=== PATIENT | female | born 1970 | race Caucasian/White ===

== ENCOUNTER 2018-02-22 09:23 | Inpatient (IN) ==
[2018-02-22] MEDS ORDERED: METHYLPREDNISOLONE SOD SUCC 125mg/2ml INJECTION IVP ONE (09:38)
[2018-02-22] MEDS ORDERED: DiphenhydrAMINE 50 MG/ML INJECTION IVP ONE (09:39)
--- NOTE | 2018-02-22 09:40 | Emergency Department Report ---
General Adult HPI - General Chief complaint: Skin/Abscess/Foreign Body Stated complaint: rash all over, medication reaction Time Seen by Provider: 02/22/18 09:33 Source: patient, family Mode of arrival: ambulatory Limitations: no limitations - History of Present Illness HPI narrative: 47-year-old female presents to the emergency department with a chief complaint of a fine rash generalized from head to toe which is itchy. Patient states that she was started on Bactrim DS yesterday in the emergency department for treatment of an abscess in her groin. The abscess was not yet ready to be drained. Patient has had 2 doses of the Bactrim DS since yesterday. She noted onset of symptoms while at home prior to arrival to the emergency department. No other complaints or associated symptoms other than feeling generally achy. Symptoms have been persistent in nature since onset. Patient has a history of prior symptoms in the past with the use of amoxicillin. - Related Data Home Medications Medication Instructions Recorded Confirmed Albuterol HFA Inhaler [Ventolin 2 puff ORAL INH Q4HR PRN 02/21/18 02/22/18 Hfa 90 mcg/actuation] Cetirizine HCl [Zyrtec] 10 mg PO HS 02/21/18 02/22/18 Fluticasone Nasal [place] [Flonase] 2 spray EA NOSTRIL DAILY 02/21/18 02/22/18 Tramadol [Ultram] 50 mg PO Q6HR PRN 02/21/18 02/22/18 Acetaminophen [Acetaminophen Extra 1,000 mg PO Q6H PRN 02/22/18 02/22/18 Strength] Ibuprofen 400 mg PO Q4H PRN 02/22/18 02/22/18 Allergies Allergy/AdvReac Type Severity Reaction Status Date / Time sulfamethoxazole Allergy Intermediate Rash Verified 02/22/18 09:52 [From Bactrim] trimethoprim [From Bactrim] Allergy Intermediate Rash Verified 02/22/18 09:52 ALL CILLINS Allergy Intermediate HIVES Uncoded 02/22/18 09:34 Review of Systems Constitutional: Denies: fever, chills Eyes: Denies: eye pain, vision change ENT: Denies: ear pain, throat pain Cardiovascular: Denies: chest pain, palpitations Respiratory: Denies: cough, dyspnea Gastrointestinal: Denies: abdominal pain, nausea, vomiting, diarrhea Genitourinary: Denies: urgency, dysuria Musculoskeletal: Denies: back pain, arthralgia Integumentary: Reports: rash. Denies: swelling Neurological: Denies: headache, numbness Psychiatric: Denies: anxiety, depression Endocrine: Denies: polydipsia, polyuria Hematological/Lymphatic: Denies: easy bruising, lymphadenopathy Allergic/Immunologic: Denies: facial swelling, itchy eyes PFSH Patient Stated Medical History Asthma Yes Other Respiratory Yes: SEASONAL ALLERGIES Other Reproductive Yes: HPV Surgical History: Appendectomy Family History: Reviewed and Noncontributory. - Social History Smoking status: Current every day smoker Substance use type: does not use Alcohol intake frequency: does not drink Physical Exam - Limitations Limitations: no limitations - General General appearance: alert, in no apparent distress - Normal Exams: Head:: Normocephalic without trauma Eyes:: Pupils are PERRLA w/ EOMI, No scleral icterus, irritation, or foreign bodies noted ENMT:: No facial trauma, nasal exudates, pharyngeal erythema (no intraoral involvement or lesions.), or exudates are noted Dental: No fractured, loose, or missing teeth noted Neck:: Full range of motion, without adenopathy, JVD, bruits or thyromegaly Chest/Respirations:: Clear all cote, with good airflow, and symmetry bilaterally Cardiovascular:: Regular rate and rhythm, without murmur or gallop, Pulses 2+ all extremities, capillary refill, <2 seconds all extremities Abdomen:: Bowel sounds positive, soft, non-tender, non-distended, no hepatosplenomegaly, masses or bruits noted Genitourinary:: Vulva without rashes, or lesions, no exudate or bleeding, noted externally (no noted internal lesions of vaginal mucosa on visual inspection.) Lymphatic:: No lymphadenopathy, or lymphedema noted Musculoskeletal:: No tenderness, or deformity noted, good range of motion, all extremities Integumentary:: No rashes (patient has a generalized morbilliform drug rash which blanches with pressure and shows no sign of secondary infection. ), hives , or bruising noted (R Groin - Patient does have small palpable abscess which is draining without extending cellulitis or lymphangitis. ), hair and nails (R Hand - 2 small discrete areas of maculopapular lesion which contained a serosanguineous fluid. They do not avulse with pressure.), without abnormality Neurological:: Patient is alert, and oriented, cranial nerves, motor/sensory/ cerebellar, exams w/o gross deficits, to observation Psychiatric:: Patient exhibits, appropriate attention, emotion and affect Course Vital Signs Temperature 99.0 F 02/22/18 09:25 Pulse Rate 122 H 02/22/18 09:25 Respiratory Rate 20 02/22/18 09:25 Blood Pressure 112/66 02/22/18 09:25 Pulse Oximetry 100 02/22/18 09:25 Temperature 99.8 F 02/22/18 14:59 Pulse Rate 79 02/22/18 15:08 Respiratory Rate 14 02/22/18 15:08 Blood Pressure 117/65 02/22/18 14:59 Pulse Oximetry 97 02/22/18 15:08 Medical Decision Making - [facility] Narrative Medical decision making narrative: Labs were discussed in detail with the patient / family and questions are answered. Patient is given 1 L normal saline intravenously. She is given Solu- Medrol 125 mg IV 1, Pepcid 20 mg IV times one, and Benadryl 50 mg IV 1 with improvement of symptoms. The Bactrim is discontinued. Sepsis is considered in the emergency department at 1200 and patient refuses further antibiotic therapy at this time. She declines any further antibiotic medications at this time. She is aware of the risk of declining antibiotic therapy in the emergency department. Patient is discussed with Dr. Ledesma from the hospitalist service who will admit the patient to his service in improved condition. Patient will undergo further evaluation and treatment in the hospital. Patient and family are in agreement with the current plan of management and are in agreement with refusal of further antibiotic coverage which was recommended by myself. She is admitted to the hospital in improved condition. Lactate and blood cultures will be followed by Dr. Ledesma and treated appropriately. Sepsis is considered in the emergency department at 1200 and patient refuses antibiotic therapy at this time. She is aware of the risk of declining antibiotic therapy in the emergency department. - Differential Diagnosis drug reaction, drug rash, ALLERGIC reaction, abscess - Lab Data Result diagrams: 02/22/18 09:55 02/22/18 09:55 Lab Results 02/22/18 02/22/18 02/22/18 Range/Units 09:55 09:55 11:40 WBC 12.4 H (4.5-11.0) T/MM3 RBC 5.03 (4.00-5.20) M/MM3 Hgb 14.2 (12-16) GM/DL Hct 41.8 (36-46) % MCV 83.1 (80-100) UM3 MCH 28.2 (26-34) UUG MCHC 34.0 (31-37) GM/DL RDW Std Deviation 41.0 (36.9-50.2) FL Plt Count 23 L* (130-400) T/MM3 MPV Not performed Immature Gran % (Auto) [employer]ogenics Repairer Neut % (Auto) Cryogenics Repairer Lymph % (Auto) Cryogenics Repairer [place] % (Auto) Cryogenics Repairer Eos % (Auto) Cryogenics Repairer Baso % (Auto) Cryogenics Repairer Neut # (Auto) Cryogenics Repairer Lymph # (Auto) Cryogenics Repairer [place] # (Auto) Cryogenics Repairer Eos # (Auto) Cryogenics Repairer Baso # (Auto) Cryogenics Repairer Abs Immat Gran (auto) Cryogenics Repairer Neutrophils % (Manual) 70.0 H (33-66) % Band Neutrophils % 22.0 H (0-6) % Lymphocytes % (Manual) 4.0 L (23-45) % Monocytes % (Manual) 4.0 (0-9.0) % Neutrophils # (Manual) 8.7 H (1.8-7.7) T/MM3 Band Neutrophils # 2.7 T/MM3 Lymphocytes # (Manual) 0.5 L (1-4.8) T/MM3 Monocytes # (Manual) 0.5 (0-0.8) T/MM3 RBC Morph Comment Normal Turbidity < 20 (0-20) Sodium 136 (134-144) MEQ/L Potassium 3.4 L (3.6-5) MEQ/L Chloride 103 (98-107) MEQ/L Carbon Dioxide 22 (22-30) MEQ/L Anion Gap 11 (5-15) meq/L BUN 10.0 (7-17) MG/DL Creatinine 0.9 (0.7-1.2) mg/dL GFR Calculation 67 BUN/Creatinine Ratio 11 (6-26) RATIO Glucose 144 H (65-110) MG/DL Calculated Osmolality 264 (261-280) MOSM/KG Calcium 8.6 (8.4-10.2) MG/DL Icterus Index < 2 (0-7) Plasma Lactate (0.6-2.2) MMOL/L Specimen Hemolysis < 15 (0-25) Ur Collection Type Urine, void-cc/notcc Urine Color Yellow (YELLOW) Urine Clarity Clear Urine pH 6.0 (5.0-8.0) Ur Specific [place] <=1.005 L (1.015-1.025) Urine Protein Negative (NEGATIVE) Urine Glucose (UA) Negative (NEGATIVE) Urine Ketones Negative (NEGATIVE) Urine Occult Blood 2+ A (NEGATIVE) Urine Nitrate Negative (NEGATIVE) Urine Bilirubin Negative (NEGATIVE) Urine Urobilinogen 0.2 (NORMAL) EU/DL Ur Leukocyte Esterase Negative (NEGATIVE) Urine RBC 0-1 (0-3) /HPF Urine WBC 0-1 (0-5) /HPF Ur Squamous Epith Cells 0-5 Urine Bacteria None seen (NEGATIVE) Ur Culture Indicated? Cult not indicated Urine Test (Negative) 02/22/18 02/22/18 Range/Units 11:40 11:50 WBC (4.5-11.0) T/MM3 RBC (4.00-5.20) M/MM3 Hgb (12-16) GM/DL Hct (36-46) % MCV (80-100) UM3 MCH (26-34) UUG MCHC (31-37) GM/DL RDW Std Deviation (36.9-50.2) FL Plt Count (130-400) T/MM3 MPV Immature Gran % (Auto) Neut % (Auto) Lymph % (Auto) [place] % (Auto) Eos % (Auto) Baso % (Auto) Neut # (Auto) Lymph # (Auto) [place] # (Auto) Eos # (Auto) Baso # (Auto) Abs Immat Gran (auto) Neutrophils % (Manual) (33-66) % Band Neutrophils % (0-6) % Lymphocytes % (Manual) (23-45) % Monocytes % (Manual) (0-9.0) % Neutrophils # (Manual) (1.8-7.7) T/MM3 Band Neutrophils # T/MM3 Lymphocytes # (Manual) (1-4.8) T/MM3 Monocytes # (Manual) (0-0.8) T/MM3 RBC Morph Comment Turbidity (0-20) Sodium (134-144) MEQ/L Potassium (3.6-5) MEQ/L Chloride (98-107) MEQ/L Carbon Dioxide (22-30) MEQ/L Anion Gap (5-15) meq/L BUN (7-17) MG/DL Creatinine (0.7-1.2) mg/dL GFR Calculation BUN/Creatinine Ratio (6-26) RATIO Glucose (65-110) MG/DL Calculated Osmolality (261-280) MOSM/KG Calcium (8.4-10.2) MG/DL Icterus Index (0-7) Plasma Lactate 1.4 (0.6-2.2) MMOL/L Specimen Hemolysis (0-25) Ur Collection Type Urine Color (YELLOW) Urine Clarity Urine pH (5.0-8.0) Ur Specific [place] (1.015-1.025) Urine Protein (NEGATIVE) Urine Glucose (UA) (NEGATIVE) Urine Ketones (NEGATIVE) Urine Occult Blood (NEGATIVE) Urine Nitrate (NEGATIVE) Urine Bilirubin (NEGATIVE) Urine Urobilinogen (NORMAL) EU/DL Ur Leukocyte Esterase (NEGATIVE) Urine RBC (0-3) /HPF Urine WBC (0-5) /HPF Ur Squamous Epith Cells Urine Bacteria (NEGATIVE) Ur Culture Indicated? Urine Test Negative (Negative) Disposition Clinical Impression: Drug reaction Qualifiers: Encounter type: initial encounter Qualified Code(s): T88.7XXA - Unspecified adverse effect of drug or medicament, initial encounter Disposition: 02 To [facility] Condition: Improved Time of Disposition: 12:00 (Admit. Dr. Ledesma. ) - Seen By: physician
[2018-02-22] MEDS: SALINE FLUSH 10ml SYRINGE IVF PRN (09:57)
[2018-02-22] MEDS: FAMOTIDINE PB 20 MG/50 ML BAG IV SCH (10:06)
[2018-02-22] MEDS ORDERED: NS 1,000 ML IV ONE (10:29)
[2018-02-22 13:21] VITALS: BMI 37.0
--- NOTE | 2018-02-22 18:58 | History & Physical Report ---
History of Present Illness Date: 02/22/18 HPI: Pt comes in with rash all over her body, on her face, arms, legs abdomen and back. Rash started overnight and is itchy. Denies any f/c, n/v/d, cp or sob. Reports some swelling of both hands. Pt came into the ED yesterday for an abscess in the groin and was prescribed Bactrim, of which she had a couple of doses yesterday. Pt reports she had an allergic rxn to penicillin before but it wasn't this extensive. Denies any skin sloughing but pt does have some pustules on the outside of her pinky finger on her right hand. Review of Systems Review of systems: 10 point ros negative other than what is noted in HPI Past Medical History Surgical History: Appendectomy Family History: No Significant Family History - Social History Smoking status: Current every day smoker Medications Home Medications Medication Instructions Recorded Confirmed Type Albuterol HFA Inhaler [Ventolin 2 puff ORAL INH Q4HR PRN 02/21/18 02/22/18 History Hfa 90 mcg/actuation] Cetirizine HCl [Zyrtec] 10 mg PO HS 02/21/18 02/22/18 History Fluticasone Nasal [place] [Flonase] 2 spray EA NOSTRIL DAILY 02/21/18 02/22/18 History Tramadol [Ultram] 50 mg PO Q6HR PRN 02/21/18 02/22/18 History Acetaminophen [Acetaminophen Extra 1,000 mg PO Q6H PRN 02/22/18 02/22/18 History Strength] Ibuprofen 400 mg PO Q4H PRN 02/22/18 02/22/18 History Allergies Allergy/AdvReac Type Severity Reaction Status Date / Time sulfamethoxazole Allergy Intermediate Rash Verified 02/22/18 09:52 [From Bactrim] trimethoprim [From Bactrim] Allergy Intermediate Rash Verified 02/22/18 09:52 ALL CILLINS Allergy Intermediate HIVES Uncoded 02/22/18 09:34 Exam Vital Signs: Temperature 99.8 F 02/22/18 14:59 Pulse Rate 79 02/22/18 15:08 Respiratory Rate 14 02/22/18 15:08 Blood Pressure 117/65 02/22/18 14:59 Pulse Oximetry 97 02/22/18 15:08 Height/Weight/BMI: Height 5 ft 5 in Weight 100.9 kg Body Mass Index 37.0 - Constitutional Present: no acute distress - Routine HEENT Exam Head: Present: normocephalic, atraumatic ENT: Present: mucous membranes moist - Routine Neck Exam Present: supple - Routine Respiratory Exam Present: CTA bilaterally. Absent: wheezes - Routine Cardiovascular Exam Present: RRR, no murmur - Routine Abdominal Exam Present: soft, non distended, non tender - Routine Exam Groin: Present: inguinal lymphadenopathy, tenderness, swelling, erythema - Routine Extremities Exam Present: no edema. Absent: cyanosis, clubbing - Routine Skin Exam Present: intact, erythema, dry, urticaria, warm, rash - Routine Neurological Exam Present: alert, oriented X3 - Routine Psychiatric Exam Present: normal affect Results - Labs CBC & Chem 7: 02/22/18 09:55 02/22/18 09:55 Assessment and Plan Assessment and Plan: Drug Rash -Likely from Bactrim, will d/c -No mucosal involvement currently -Supportive tx Thrombocytopenia -Likely DITP 2/2 Bactrim (drug induced immune thrombocytopenia) -Will order peripheral smear, d/c Bactrim -If DITP than should recover within days to 1 week -For now will monitor but options for tx if gets worse would be IVIG/steroids Inguinal abscess -Small abscess, draining spontaneously, will send for cx -Will do clindamycin, pt reports she has likely had that before without issues Asthma -Cont. home inhaler Ppx -Lovenox - Physician Narrative Narrative: Date: 02/22/18 Time: 1853 Hospital Course Summary Disclaimer: The visit summary below is not to be considered part of the above Progress Note.
[2018-02-22] MEDS ORDERED: NICOTINE 14 MG PATCH TD PRN (19:17)
[2018-02-22] MEDS ORDERED: ALBUTEROL 2.5mg/3ml (0.083%) NEB AEROSOL PRN (19:31)
[2018-02-22] MEDS: CETIRIZINE 10 MG TABLET PO SCH (20:49)
[2018-02-22] MEDS: CLINDAMYCIN 300 MG CAPSULE PO SCH (20:49)
[2018-02-23] MEDS ORDERED: ENOXAPARIN 40 MG/0.4 ML INJECTION SQ SCH (09:00)
[2018-02-23] MEDS: NICOTINE PATCH REMOVAL TD SCH (09:11)
[2018-02-23] MEDS: FLUTICASONE NASAL SPRAY 50mcg EA NOSTRIL SCH (09:11)
[2018-02-23] MEDS: CLINDAMYCIN 300 MG CAPSULE PO SCH ×4 (09:12→20:04)
[2018-02-23] MEDS ORDERED: DiphenhydrAMINE 25 MG CAPSULE PO PRN (09:23)
[2018-02-23] MEDS: FAMOTIDINE PB 20 MG/50 ML BAG IV SCH (10:15)
[2018-02-23] MEDS: FAMOTIDINE 20 MG TABLET PO SCH ×2 (10:32→20:04)
--- NOTE | 2018-02-23 13:59 | Progress Note ---
- Date 02/23/18 Subjective: Patient is seen sitting in her bed after breakfast. She feels her sxs are improving but is currently having quite a bit of itching. Not as much swelling , twan in her hands. Her abscess is still draining and she feels it is improving. No f/c/n/v. Objective Vital signs: Temperature 96.6 F L 02/23/18 13:50 Pulse Rate 62 02/23/18 13:50 Respiratory Rate 16 02/23/18 13:50 Blood Pressure 126/72 02/23/18 13:50 Pulse Oximetry 99 02/23/18 13:50 Height/Weight/BMI: Height 1.65 m Weight 100.3 kg Body Mass Index 37.0 - Constitutional Present: no acute distress, well nourished, well developed - Routine HEENT Exam Head: Present: normocephalic, atraumatic - Routine Respiratory Exam Present: CTA bilaterally. Absent: wheezes - Routine Cardiovascular Exam Present: RRR, no murmur - Routine Abdominal Exam Present: soft, non distended, non tender - Routine Extremities Exam Present: no edema, normal capillary refill - Routine Skin Exam Present: dry, warm Comments: diffuse maculpapular rash over her entire body sparing the soles of the feet. The blood filled vesicles on her R hand have decreased in size. More prominent rash to the inner thighs. - Routine Neurological Exam Present: alert, oriented X3 - Routine Lymphatic Exam Lymphatic: Absent: adenopathy - Routine Psychiatric Exam Present: normal affect, cooperative Results - Labs CBC & Chem 7: 02/23/18 04:08 02/23/18 04:08 Microbiology Results: Microbiology 02/23/18 04:09 Groin Gram Stain - Final 02/23/18 04:09 Groin Abscess Culture - Preliminary Culture Initiated - Results Pending Assessment and Plan Assessment and Plan: Drug Rash -Likely from Bactrim, d/c'd 02/22 -No mucosal involvement currently -Continue supportive tx -Switch IV pepcid to p.o. and add Benadryl prn itch for histamine response. Thrombocytopenia -Likely DITP 2/2 Bactrim (drug induced immune thrombocytopenia) -Will order peripheral smear, d/c Bactrim -If DITP than should recover within days to 1 week -For now will monitor but options for tx if gets worse would be IVIG/steroids -One prophylactic dose Lovenox given, will hold d/t thrombocytopenia Inguinal abscess -Small abscess, draining spontaneously, wound culture pending -Day#2 of clindamycin Asthma -Cont. home inhaler DVT Prophylaxis: SCD's GI Prophylaxis: Pepcid Resuscitation Status: Full Code - Physician Narrative Physician: other (Dr Ledesma) Narrative: Date: 02/23/18 Time: 1513 S: Pt doing better, reports rash is improved. Denies any f/c, n/v/d. O: Gen: no acute distress Lungs: CTAB without wheezes A/P Cont. clinda, await cx's, rash improving, platelets also improving. Hospital Course Summary Disclaimer: The visit summary below is not to be considered part of the above Progress Note. Hospital Course: 02/22 - admit for OBS Drug Rash -Likely from Bactrim, d/c -No mucosal involvement currently -Continue supportive tx Thrombocytopenia -Likely DITP 2/2 Bactrim (drug induced immune thrombocytopenia) -Will order peripheral smear, d/c Bactrim -If DITP than should recover within days to 1 week -For now will monitor but options for tx if gets worse would be IVIG/steroids Inguinal abscess -Small abscess, draining spontaneously, wound culture pending -Start clindamycin 02/22/18 -Rash improving -One prophylactic dose Lovenox inadvertently given, will hold d/t thrombocytopenia -Follow platelet count. Continue supportive tx. -Day #2 clinda for inguinal abscess
[2018-02-23] MEDS: CETIRIZINE 10 MG TABLET PO SCH (20:04)
[2018-02-23] MEDS: DiphenhydrAMINE 25 MG CAPSULE PO PRN (20:04)
[2018-02-24] MEDS: DiphenhydrAMINE 25 MG CAPSULE PO PRN (08:09)
[2018-02-24] MEDS: CLINDAMYCIN 300 MG CAPSULE PO SCH ×4 (10:26→21:50)
[2018-02-24] MEDS: FAMOTIDINE 20 MG TABLET PO SCH ×2 (10:26→21:50)
[2018-02-24] MEDS: FLUTICASONE NASAL SPRAY 50mcg EA NOSTRIL SCH (10:27)
[2018-02-24] MEDS: NICOTINE PATCH REMOVAL TD SCH (10:27)
[2018-02-24] MEDS: PHOSPHORUS 250 MG TABLET PO SCH ×4 (10:27→21:49)
--- NOTE | 2018-02-24 12:20 | General Surgery Consult Note ---
Consult date: 02/24/18 Attending Physician: Barbara Ng MD [facility] contusion of right hand 11/2017 Surgical History: Appendectomy 02/16/2011 [place] - Social History Smoking status: Current every day smoker Substance use type: does not use Alcohol intake frequency: does not drink Medications Home Medications Medication Instructions Recorded Confirmed Type Albuterol HFA Inhaler [Ventolin 2 puff ORAL INH Q4HR PRN 02/21/18 02/22/18 History Hfa 90 mcg/actuation] Cetirizine HCl [Zyrtec] 10 mg PO HS 02/21/18 02/22/18 History Fluticasone Nasal [place] [Flonase] 2 spray EA NOSTRIL DAILY 02/21/18 02/22/18 History Tramadol [Ultram] 50 mg PO Q6HR PRN 02/21/18 02/22/18 History Acetaminophen [Acetaminophen Extra 1,000 mg PO Q6H PRN 02/22/18 02/22/18 History Strength] Ibuprofen 400 mg PO Q4H PRN 02/22/18 02/22/18 History Allergies Allergy/AdvReac Type Severity Reaction Status Date / Time sulfamethoxazole Allergy Intermediate Rash Verified 02/22/18 09:52 [From Bactrim] trimethoprim [From Bactrim] Allergy Intermediate Rash Verified 02/22/18 09:52 ALL CILLINS Allergy Intermediate HIVES Uncoded 02/22/18 09:34 Review of Systems 10-point ROS: negative except for HPI and the following: - Respiratory Respiratory: Present: other (every day smoker) - Vital Signs Last Vital Signs Temp 97.1 F 02/24/18 11:23 Pulse 63 02/24/18 11:23 Resp 18 02/24/18 11:23 BP 120/70 02/24/18 11:23 Pulse Ox 98 02/24/18 11:23 - Laboratory Result Diagrams: 02/24/18 04:24 02/23/18 04:08 General Surgery Results - Results Labs: 02/24/18 04:24
--- NOTE | 2018-02-24 15:32 | Progress Note ---
- Date 02/24/18 Subjective: Patient is seen today in f-u of allergic rxn to Bactrim. SHe reports she feels the swelling is improving but she has noted new/different rash on feet and insides of legs. Wonders if she is allergic to clindamycin. Otherwise, she is feeling fine. No n/v/CP/SOA. Objective Vital signs: Temperature 97.1 F 02/24/18 15:05 Pulse Rate 60 02/24/18 15:05 Respiratory Rate 16 02/24/18 15:05 Blood Pressure 131/72 02/24/18 15:05 Pulse Oximetry 98 02/24/18 15:05 Height/Weight/BMI: Weight 101.4 kg - Constitutional Present: no acute distress, well nourished, well developed - Routine HEENT Exam Head: Present: normocephalic, atraumatic ENT: Present: mucous membranes moist, oropharynx clear Comments: no mucosal abnormalities - Routine Respiratory Exam Present: CTA bilaterally. Absent: wheezes - Routine Cardiovascular Exam Present: RRR, no murmur - Routine Abdominal Exam Present: soft, non distended, non tender - Routine Extremities Exam Present: no edema, normal capillary refill - Routine Skin Exam Present: dry, warm Comments: diffuse maculopapular, pink rash to entire body sparing soles of feet - Routine Neurological Exam Present: alert, oriented X3 - Routine Lymphatic Exam Lymphatic: Absent: adenopathy - Routine Psychiatric Exam Present: normal affect, cooperative Results - Labs CBC & Chem 7: 02/24/18 04:24 02/23/18 04:08 Assessment and Plan Assessment and Plan: Assessment Drug rash - likely from Bactrim Thrombocytopenia - likely DITP (drug induced immune thrombocytopenia) Inguinal abscess Leukocytosis - POA (resolved) Asthma Tobacco addiction Hidradenitis suppurativa Plan Phosphorus low - supplementation initiated. Platelets improving 23-->28-->41. Leukocytosis resolved. Continues on clindamycin (Day#3) for inguinal abscess. Abscess continues to drain spontaneously. Consult Dr. Sanches for determination of whether abscess needs further I&D. Peripheral smear is consistent with reactive/infectious etiology. Case discussed with Dr. Ng and Dr Sanches. 02/24/2018-6:55 PM-I examined the patient independently. I reviewed this chart, the patient history, and the [employer]UM PL[employer]'s/PA's documented findings as above. We discussed and formulated the assessment and plan as above with the additions below.-Dr. Ng The patient was seen this morning in her room. She does have a firm area in the right groin concerning for an abscess. Her rash is slowly improving. She has no sloughing of her skin. No sores in her mouth or genital area. She is feeling well otherwise. On exam she is alert and in no acute distress. HEENT-examination of the mouth reveals no oral lesions. Chest clear to auscultation. Cardiovascular reveals a regular rate and rhythm. Abdomen is soft and nontender. Extremities are free of edema. Examination of the right groin reveals a firm area approximately 3-4 inches in greatest length with tenderness. She states there has been some discharge. Skin is warm and dry. She does have a rash over most of her body. It appears to spare the palms of her hands and soles for feet. There is no sloughing of her skin. Impression and plan Drug rash likely from Bactrim. Bactrim was discontinued. Possible abscess right groin, continue clindamycin. Consult Dr. Sanches for possible I&D Thrombocytopenia-possible drug-induced immune thrombocytopenia-this is improving. Recheck lab tomorrow. DVT Prophylaxis: SCD's - Physician Narrative Narrative: Date: 02/24/18 Time: 1529 Hospital Course Summary Disclaimer: The visit summary below is not to be considered part of the above Progress Note. Hospital Course: 02/22 - admit for OBS Drug Rash -Likely from Bactrim, d/c -No mucosal involvement currently -Continue supportive tx Thrombocytopenia -Likely DITP 2/2 Bactrim (drug induced immune thrombocytopenia) -Will order peripheral smear, d/c Bactrim -If DITP than should recover within days to 1 week -For now will monitor but options for tx if gets worse would be IVIG/steroids Inguinal abscess -Small abscess, draining spontaneously, wound culture pending -Start clindamycin 02/23/18 -Rash improving -One prophylactic dose Lovenox inadvertently given, will hold d/t thrombocytopenia -Follow platelet count. Continue supportive tx. -Day #2 clinda for inguinal abscess 02/24/18 Phosphorus low - supplementation initiated. Platelets improving 23-->28-->41. Leukocytosis resolved. Continues on clindamycin (Day#3)for inguinal abscess. Abscess continues to drain spontaneously. Consult Dr. Sanches for determination of whether abscess needs further I&D. Peripheral smear is consistent with reactive/infectious etiology. Case discussed with Dr. Ng and Dr Sanches.
[2018-02-24] MEDS: SALINE FLUSH 10ml SYRINGE IVF PRN (18:32)
--- NOTE | 2018-02-24 21:12 | Consultation ---
DATE OF CONSULTATION 02/24/2018 FINDINGS Mrs. Guardado is a 47-year-old female whom I was asked to see today as a result of a reported right inguinal abscess. Patient informs me that towards the end of last week she had noted that there was a small "pimple" within her right inguinal region near the labia. The patient informs me that this had occurred after she had just "shaven." Patient states that on Friday that there was a "hard lump" that had developed near the right labia. The patient states that the lump became quite painful to the point that it was difficult for her to walk. Pain was made worse with movement. Pain was somewhat improved by lying still. The patient stated that the pain did, however, become severe enough that she presented to the emergency room facility on Friday. Patient states that she was told that she had "too hard of a spot" to be drained. She was placed on oral antibiotics. Unfortunately, the patient developed an allergic reaction to the Bactrim and had developed blisters. The patient was subsequently admitted to the hospital for further care. The patient denies prior history for abscesses. She denies prior history for MRSA. PAST MEDICAL HISTORY, PAST SURGICAL HISTORY, MEDICATIONS, ALLERGIES, SOCIAL HISTORY, FAMILY HISTORY, REVIEW OF SYSTEMS Performed by my nurse practitioner, Gonzalez Coleman APRN. PHYSICAL EXAMINATION GENERAL: Mrs. Guardado is a 47-year-old female who this evening did not appear to be in acute distress. VITAL SIGNS: Afebrile, normotensive. Current vitals include temperature 97.3, pulse 63, respirations 16, blood pressure 118/69, SAO2 99% on room air. HEENT: Normocephalic. Pupils are equally round and react to light and accommodation. NECK: Supple without lymphadenopathy. CHEST: Clear to auscultation bilaterally. HEART: Regular rate and rhythm. Normal S1 and S2 without gallops, murmurs or clicks. ABDOMEN: Palpation of the abdomen revealed it to be soft and nontender. No evidence of hepatosplenomegaly or other abnormal masses. Attention was focused to the area of concern within the right inguinal region. Just beneath the mons pubis region the patient is found to have an area of erythema. There is a small opening on the order of 5-6 mm present adjacent to this area of erythema. Upon palpation the patient was found to have marked induration originating at this location and extending in a cephalad and lateral fashion about 6 cm. Palpation above the opening did reveal marked induration. With firm palpation one could express a moderate amount of purulent material through this opening. Surrounding skin was quite erythematous in nature. This area was tender to palpation. EXTREMITIES: Without clubbing, cyanosis, or edema. NEURO: Cranial nerves II-XII grossly intact. Patient is without focal motor or sensory deficits. LABORATORY/RADIOGRAPHIC EVALUATION The patient's white count was 12.4 upon admission. White count then increased to 15,000. Her white count, however, has returned to normal at 7.3. Platelets are low at 41,000. Hemoglobin is normal at 12.0. The patient had a CMP obtained yesterday that was without marked abnormalities. ASSESSMENT 47-year-old female with right inguinal abscess with surrounding induration and erythema. Patient with development of allergic reaction secondary to sulfa. Patient likely with drug-induced thrombocytopenia. PLAN Will recheck CBC tomorrow. Platelet counts are improving. If her platelet count is above 60,000 tomorrow I would recommend proceeding in an operative setting with a more formal exploration of this right inguinal abscess with possible excisional surgical debridement. I informed the patient that she does have a fairly significant abscess involving the right inguinal region that is not adequately being drained. I did not feel that I can adequately drain this abscess at the bedside and it was therefore my recommendation that this be carried out in an operative setting under some anesthesia. I discuss with the patient what incision and drainage of abscess would entail with possible excisional surgical debridement and its associated risks which included but were not inclusive of bleeding and/or infection. The patient understood and agreed with the proposed plan. MARY
[2018-02-24] MEDS: CETIRIZINE 10 MG TABLET PO SCH (21:50)
--- NOTE | 2018-02-25 08:36 | General Surgery Progress Note ---
Subjective Narrative: States the left inguinal abscess is still draining a little, but has slowed down. Denies nausea, chest pain, SOA. Planning on I&D of the abscess in the OR about noon today. - Vital Signs Last Vital Signs Temp 96.6 F L 02/25/18 07:20 Pulse 58 L 02/25/18 07:20 Resp 18 02/25/18 07:20 BP 144/86 H 02/25/18 07:20 Pulse Ox 97 02/25/18 07:20 - Laboratory Result Diagrams: 02/25/18 04:00 02/25/18 04:00 - Abnormal Exam Skin: Abscess right inguinal area - Normal Exam General: awake, alert, oriented Respiratory: no labored breathing Abdominal: soft Psychiatric: normal affect Neurological: CN 2-12 grossly intact Assessment and Plan (1) Abscess of right groin Current Visit: Yes Status: Acute Plan: I&D possible surgical debridement about noon today. Hospital Course Summary Disclaimer: The visit summary below is not to be considered part of the above Progress Note. Hospital Course: 02/22 - admit for OBS Drug Rash -Likely from Bactrim, d/c -No mucosal involvement currently -Continue supportive tx Thrombocytopenia -Likely DITP 2/2 Bactrim (drug induced immune thrombocytopenia) -Will order peripheral smear, d/c Bactrim -If DITP than should recover within days to 1 week -For now will monitor but options for tx if gets worse would be IVIG/steroids Inguinal abscess -Small abscess, draining spontaneously, wound culture pending -Start clindamycin 02/23/18 -Rash improving -One prophylactic dose Lovenox inadvertently given, will hold d/t thrombocytopenia -Follow platelet count. Continue supportive tx. -Day #2 clinda for inguinal abscess 02/24/18 Phosphorus low - supplementation initiated. Platelets improving 23-->28-->41. Leukocytosis resolved. Continues on clindamycin (Day#3)for inguinal abscess. Abscess continues to drain spontaneously. Consult Dr. Sanches for determination of whether abscess needs further I&D. Peripheral smear is consistent with reactive/infectious etiology. Case discussed with Dr. Ng and Dr Sanches.
--- NOTE | 2018-02-25 08:55 | Anesthesia Preoperative Report ---
Anesthesia Preoperative Record - Date and Time Date: 02/25/18 Preoperative Diagnosis: drug reaction Proposed Procedure: Debridement of groin abcess NPO Since Date: 02/25/18 NPO Since Time: 00:00 Allergies/Adverse Reactions: Allergies Allergy/AdvReac Type Severity Reaction Status Date / Time sulfamethoxazole Allergy Intermediate Rash Verified 02/22/18 09:52 [From Bactrim] trimethoprim [From Bactrim] Allergy Intermediate Rash Verified 02/22/18 09:52 ALL CILLINS Allergy Intermediate HIVES Uncoded 02/22/18 09:34 - Vital Signs Vital Signs: Temperature 96.6 F L 02/25/18 07:20 Pulse Rate 58 L 02/25/18 07:20 Respiratory Rate 18 02/25/18 07:20 Blood Pressure 144/86 H 02/25/18 07:20 Pulse Oximetry 97 02/25/18 07:20 Height and Weight: Weight 101.9 kg - Medications Inpatient Medications: Current Medications Albuterol Sulfate (Proventil Neb (0.083%)) 2.5 mg AEROSOL Q4H PRN PRN Reason: Shortness of air/wheezing Cetirizine HCl (Zyrtec) 10 mg PO HS [facility] Last Admin: 02/24/18 21:50 Dose: 10 mg Clindamycin HCl (Cleocin) 300 mg PO QID [facility] Last Admin: 02/24/18 21:50 Dose: 300 mg Diphenhydramine HCl (Benadryl) 25 - 50 mg PO Q4H PRN PRN Reason: Itching Last Admin: 02/24/18 08:09 Dose: 25 mg Famotidine (Pepcid) 20 mg PO BID [facility] Last Admin: 02/24/18 21:50 Dose: 20 mg Fluticasone Propionate (Flonase) 2 spray EA NOSTRIL DAILY [facility] Last Admin: 02/24/18 10:27 Dose: Not Given Nicotine (Nicoderm) 14 mg TD DAILY PRN Nicotine (Nicotine Patch Removal) 1 removal TD DAILY [facility] Last Admin: 02/24/18 10:27 Dose: Not Given Sodium Chloride (Iv Flush) 10 - 80 ml IVF PRN PRN PRN Reason: Flushing Last Admin: 02/24/18 18:32 Dose: 10 ml Sodium Phosphate (K-Phos *Neutral* Tablet) 500 mg PO WMHS [facility] Last Admin: 02/24/18 21:49 Dose: 500 mg Home Medications: Home Medications Medication Instructions Recorded Confirmed Type Albuterol HFA Inhaler [Ventolin 2 puff ORAL INH Q4HR PRN 02/21/18 02/22/18 History Hfa 90 mcg/actuation] Cetirizine HCl [Zyrtec] 10 mg PO HS 02/21/18 02/22/18 History Fluticasone Nasal [place] [Flonase] 2 spray EA NOSTRIL DAILY 02/21/18 02/22/18 History Tramadol [Ultram] 50 mg PO Q6HR PRN 02/21/18 02/22/18 History Acetaminophen [Acetaminophen Extra 1,000 mg PO Q6H PRN 02/22/18 02/22/18 History Strength] Ibuprofen 400 mg PO Q4H PRN 02/22/18 02/22/18 History Is Patient on Beta Tamie?: No - Medical History Respiratory: Reports: Asthma, Other (SEASONAL ALLERGIES) DENIES: Sleep Apnea - Surgical History GI Surgery/Treatments: Reports: Appendectomy Anesthesia Reactions: None Hx Family Anesthesia Reaction: No History of Motion Sickness: No - Social History Smoking Status: Current every day smoker Packs per day: 1 Pack-years: 20 Hx Chewing Tobacco Use: No Second Hand Exposure: No Substance Use Type: does not use Alcohol Intake Frequency: does not drink - Pertinent Findings Laboratory: CBC and BMP 02/25/18 04:00 02/25/18 04:00 BMP 02/25/18 04:00 Sodium 144 Potassium 3.9 Chloride 108 H Carbon Dioxide 25 BUN 16.0 Creatinine 0.6 L Glucose 98 Calcium 8.4 EKG: Sinus Rhythm - Physical Exam Respiratory Exam: Present: lungs clear Cardiovascular Exam: Present: regular rate and rhythm - Airway Assessment Mallampati Score: II TMD: 3 Fingerbreadths Neck Extension: good Overall Assessment: may be difficult mask vent - ASA ASA Score: 2 - Plan Anesthesia: General TIVA - Discussion Discussion: Discussed risks/options/alternatives of anesthesia and questions answered. Patient consents. Nursing pain assessment noted. Attestation Statement: Prior to the delivery of any anesthetic medication, I examined the patient, developed the plan, obtained the patient's consent and discussed the risk and benefits of the procedure with the patient/guardian. - Additional Information Seen by Anesthesia: Yes
[2018-02-25] MEDS: CLINDAMYCIN 300 MG CAPSULE PO SCH ×4 (09:33→20:50)
[2018-02-25] MEDS: SALINE FLUSH 10ml SYRINGE IVF PRN (10:12)
[2018-02-25] MEDS ORDERED: LR 1,000 ML IV SCH (10:15)
[2018-02-25] MEDS ORDERED: FentaNYL 250 MCG/5 ML INJECTION ONE (11:13)
[2018-02-25] MEDS ORDERED: MIDAZOLAM 2mg/2ml INJECTION ONE (11:13)
[2018-02-25] MEDS ORDERED: PROPOFOL 500 MG/50 ML VIAL ONE (11:15)
[2018-02-25] MEDS ORDERED: BUPIVACAINE 0.25%/EPI 1:200,000 30ml SDV ONE (11:24)
--- NOTE | 2018-02-25 12:07 | General Surgery Procedure Note ---
Date of Procedure: 02/25/18 Surgeon: Verónica Spray Gun Sizer: Gonzalez Coleman APRN Postoperative Diagnosis: Right inguinal abscess Procedure: Incision and drainage right inguinal abscess with surgical debridement of subcutaneous tissue and packing of wound. Estimated Blood Loss: See Anesthesia Record. Pathology: none sent
[2018-02-25] MEDS ORDERED: BUPIVACAINE 0.25%/EPI 1:200,000 30ml SDV ID ONE (12:18)
[2018-02-25] MEDS ORDERED: KETOROLAC 30 MG/ML INJECTION IVP ONE (12:20)
[2018-02-25] MEDS: PHOSPHORUS 250 MG TABLET PO SCH ×2 (12:45→14:19)
[2018-02-25] MEDS: FAMOTIDINE 20 MG TABLET PO SCH ×2 (12:45→20:50)
[2018-02-25] MEDS: NICOTINE PATCH REMOVAL TD SCH (12:46)
[2018-02-25] MEDS: FLUTICASONE NASAL SPRAY 50mcg EA NOSTRIL SCH (12:46)
--- NOTE | 2018-02-25 12:49 | Anesthesia Postoperative Note ---
- Date and Time Date: 02/25/18 Time: 12:07 - Status Patient Participated in Evaluation: Patient Participated in Person Vital Signs: Temperature 95.7 F L 02/25/18 12:42 Pulse Rate 50 L 02/25/18 12:42 Respiratory Rate 20 02/25/18 12:42 Blood Pressure 134/77 02/25/18 12:42 Pulse Oximetry 100 02/25/18 12:42 Respiratory Function: Airway Patent Cardiovascular Function: Regular Pulse EKG: Sinus Rhythm Mental Status: Alert and Oriented Pain Intensity: 3 Hydration: IV Infusing Complications During Recover: None Apparent - Follow-Up Instructions Instructions: Per Surgeon
--- NOTE | 2018-02-25 15:21 | Progress Note ---
- Date 02/25/18 Subjective: The patient was seen this afternoon after surgery in her room. She did have incision and drainage of her right inguinal abscess. Dr. Sanches stated it was about 4-5 cm. He stated it will need to be packed with gauze twice daily. The patient states that she would like to learn how to pack the wound herself. She states her rash is improving. Her itching is getting better. She is eating and drinking well. She denies any shortness of breath. Bowels are moving normally. Objective Vital signs: Temperature 97 F 02/25/18 13:57 Pulse Rate 59 L 02/25/18 14:15 Respiratory Rate 16 02/25/18 14:55 Blood Pressure 143/84 H 02/25/18 14:15 Pulse Oximetry 100 02/25/18 14:15 Height/Weight/BMI: Weight 101.9 kg Comments: GEN-alert, oriented, no acute distress HEENT-oropharynx is moist NECK-supple CV-regular rate and rhythm CHEST-clear to auscultation bilaterally ABD-soft, nontender with positive bowel sounds -no [place] EXT-no edema NEURO-no focal deficits SKIN-warm and dry, total body rash is improving. She does have some rash on the palms of her hands which was present yesterday. There is no skin sloughing. She denies oral lesions or genital lesions. I did look at her wound area in the right groin and it is currently packed. There is some serosanguineous drainage through the dressing. Results - Labs CBC & Chem 7: 02/25/18 04:00 02/25/18 04:00 Labs: Phosphorus is 5.4 Assessment and Plan Assessment and Plan: Assessment Drug rash - likely from Bactrim Thrombocytopenia - likely DITP (drug induced immune thrombocytopenia)-improving Inguinal abscess-status post I&D by Dr. Sanches on 02/25/2018 Leukocytosis - POA (resolved) Asthma Tobacco addiction Hidradenitis suppurativa Hypophosphatemia-resolved Plan Patient is currently on clindamycin day #4 for right inguinal abscess. She is status post I&D by Dr. Sanches. Wound is currently packed. She will need to change the packing twice daily. She is interested in learning how to do this herself. I will have the nurses teach her how to pack her wound this evening and in the morning. We can reassess and make sure there is no significant bleeding with her thrombocytopenia. Recheck CBC tomorrow. Probable discharge tomorrow if she continues to do well. We'll discontinue phosphorus supplementation as phosphorus is now elevated. Platelets improving 23-->28-->41-->60. Recommend smoking cessation. DVT Prophylaxis: SCD's Resuscitation Status: Full Code - Physician Narrative Narrative: Date: 02/25/18 Time: 1516 Hospital Course Summary Disclaimer: The visit summary below is not to be considered part of the above Progress Note. Hospital Course: 02/22 - admit for OBS Drug Rash -Likely from Bactrim, d/c -No mucosal involvement currently -Continue supportive tx Thrombocytopenia -Likely DITP 2/2 Bactrim (drug induced immune thrombocytopenia) -Will order peripheral smear, d/c Bactrim -If DITP than should recover within days to 1 week -For now will monitor but options for tx if gets worse would be IVIG/steroids Inguinal abscess -Small abscess, draining spontaneously, wound culture pending -Start clindamycin 02/23/18 -Rash improving -One prophylactic dose Lovenox inadvertently given, will hold d/t thrombocytopenia -Follow platelet count. Continue supportive tx. -Day #2 clinda for inguinal abscess 02/24/18 Phosphorus low - supplementation initiated. Platelets improving 23-->28-->41. Leukocytosis resolved. Continues on clindamycin (Day#3)for inguinal abscess. Abscess continues to drain spontaneously. Consult Dr. Sanches for determination of whether abscess needs further I&D. Peripheral smear is consistent with reactive/infectious etiology. Case discussed with Dr. Ng and Dr Sanches.
--- NOTE | 2018-02-25 16:16 | Operative Note ---
DATE OF SERVICE 02/25/2018 SURGEON Odin Sanches MD [employer] Gonzalez Coleman APRN PREOPERATIVE DIAGNOSIS Right inguinal abscess. POSTOPERATIVE DIAGNOSIS Right inguinal abscess. PROCEDURE Incision and drainage of deep right inguinal abscess with excisional surgical debridement of necrotic subcutaneous tissues. ANESTHESIA TIVA/local BRIEF HISTORY/INDICATIONS Mrs. Logan is a 47-year-old female whom I was asked to see yesterday as a result of an area of marked firmness and induration involving the right inguinal region. The patient was found to have a very small opening with purulent material draining out of this opening within the right inguinal region. Just above this small draining opening, the patient was found to have a fluctuant mass with associated induration. It was recommended that she undergo a more formal incision and drainage of this abscess. Given her significant tenderness in this location, it was recommend this be carried out in an operative setting under anesthesia. For completeness please refer to notes included in the patient's chart. DESCRIPTION OF PROCEDURE After informed consent was obtained, patient was brought to the operative suite and placed on the table in a supine fashion. Right inguinal region was then prepped and draped in sterile fashion. Formal time-out was then completed. 0.25% Marcaine with epinephrine was injected circumferentially around the small opening as well as overlying the fluctuant mass which extended laterally into the inguinal region. Next, a hemostat was then introduced into the small opening where the purulent material was coming forth and advanced up into the underlying abscess cavity. Skin overlying the abscess cavity was then opened with knife through the area of analgesia. An incision that was about 4-5 cm in length was made overlying the underlying abscess cavity. One could see a small amount of underlying necrotic subcutaneous tissues which was debrided sharply with a 15 blade and tissue forceps. Once all nonviable tissue had been debrided and the abscess cavity had been opened and exposed, the cavity was then irrigated and packed with 2-inch gauze soaked with saline. The patient tolerated the procedure without difficulty. She is in the process of awakening from her anesthetic and will be sent back to the recovery room once deemed in stable condition. MARY
[2018-02-25] MEDS ORDERED: MORPHINE SULFATE 2mg INJECTION IVP PRN (19:56)
[2018-02-25] MEDS: HYDROCODONE/APAP 5mg/325mg TABLET PO PRN (20:50)
[2018-02-25] MEDS: CETIRIZINE 10 MG TABLET PO SCH (20:50)
[2018-02-26] MEDS: HYDROCODONE/APAP 5mg/325mg TABLET PO PRN (04:04)
[2018-02-26] MEDS ORDERED: MORPHINE SULFATE 4mg INJECTION IVP PRN (06:45)
--- NOTE | 2018-02-26 09:18 | Discharge Summary ---
Discharge Information Date of admission: 02/23/18 14:12 Anticipated date of discharge: 02/26/18 Attending Physician: Barbara Ng MD Primary care physician: Isiah Santos MD Consults: 02/24/18 11:18 Physician Consult Consulting Provider: Odin Sanches Reason For Exam: inguinal abscess Acute drug reaction with rash, most likely from Bactrim - improving. Thrombocytopenia, likely due to Drug induced immune thrombocytopenia - improving. Inguinal abscess-status post I&D by Dr. Sanches on 02/25/2018. Leukocytosis - POA (resolved). Asthma, stable, chronic. Tobacco addiction, chronic. Hidradenitis suppurativa, chronic. Hypophosphatemia-resolved. - Procedures Procedures: DATE OF SERVICE 02/25/2018 SURGEON Odin Sanches MD DRUG AND ALCOHOL COUNSELLOR Gonzalez Coleman APRN PREOPERATIVE DIAGNOSIS Right inguinal abscess. POSTOPERATIVE DIAGNOSIS Right inguinal abscess. PROCEDURE Incision and drainage of deep right inguinal abscess with excisional surgical debridement of necrotic subcutaneous tissues. ANESTHESIA TIVA/local BRIEF HISTORY/INDICATIONS Mrs. Logan is a 47-year-old female whom I was asked to see yesterday as a result of an area of marked firmness and induration involving the right inguinal region. The patient was found to have a very small opening with purulent material draining out of this opening within the right inguinal region. Just above this small draining opening, the patient was found to have a fluctuant mass with associated induration. It was recommended that she undergo a more formal incision and drainage of this abscess. Given her significant tenderness in this location, it was recommend this be carried out in an operative setting under anesthesia. For completeness please refer to notes included in the patient's chart. DESCRIPTION OF PROCEDURE After informed consent was obtained, patient was brought to the operative suite and placed on the table in a supine fashion. Right inguinal region was then prepped and draped in sterile fashion. Formal time-out was then completed. 0.25% Marcaine with epinephrine was injected circumferentially around the small opening as well as overlying the fluctuant mass which extended laterally into the inguinal region. Next, a hemostat was then introduced into the small opening where the purulent material was coming forth and advanced up into the underlying abscess cavity. Skin overlying the abscess cavity was then opened with knife through the area of analgesia. An incision that was about 4-5 cm in length was made overlying the underlying abscess cavity. One could see a small amount of underlying necrotic subcutaneous tissues which was debrided sharply with a 15 blade and tissue forceps. Once all nonviable tissue had been debrided and the abscess cavity had been opened and exposed, the cavity was then irrigated and packed with 2-inch gauze soaked with saline. The patient tolerated the procedure without difficulty. She is in the process of awakening from her anesthetic and will be sent back to the recovery room once deemed in stable condition. - Laboratory Labs: 02/26/18 04:15 02/25/18 04:00 Laboratory Results - last 72 hr 02/22/18 02/23/18 02/24/18 02/25/18 02/25/18 04:24 04:00 04:00 WBC 12.4 15.3 7.3 D 9.3 RBC 4.32 4.39 Hgb 14.2 13.1 12.0 12.2 Hct 41.8 39.0 36.5 37.2 MCV 84.5 84.7 MCH 27.8 27.8 MCHC 32.9 32.8 RDW Std Deviation 42.2 42.1 Plt Count 23 L 28 L 41 L D 60 L D MPV Not performed Not performed Immature Gran % (Auto) Not performed Not performed Neut % (Auto) 70.0 H 73.0 H Not performed Not performed Lymph % (Auto) 22.0 H 16.0 H Not performed Not performed [place] % (Auto) Not performed Not performed Eos % (Auto) Not performed Not performed Baso % (Auto) Not performed Not performed Neut # (Auto) Not performed Not performed Lymph # (Auto) Not performed Not performed [place] # (Auto) Not performed Not performed Eos # (Auto) Not performed Not performed Baso # (Auto) Not performed Not performed Abs Immat Gran (auto) Not performed Not performed Neutrophils % (Manual) 68.0 H 49.0 Band Neutrophils % 2.0 D Lymphocytes % (Manual) 21.0 L 32.0 Reactive Lymphs % 1.0 H Monocytes % (Manual) 5.0 7.0 Eosinophils % (Manual) 6.0 H 7.0 H Basophils % (Manual) 1.0 Metamyelocytes % 1.0 H Neutrophils # (Manual) 5.0 4.6 Band Neutrophils # 0.2 Lymphocytes # (Manual) 1.5 3.0 Abs React Lymphs (Man) 0.1 H Monocytes # (Manual) 0.4 0.7 Eosinophils # (Manual) 0.4 0.7 H Basophils # (Manual) 0.1 Metamyelocytes # 0.1 RBC Morph Comment Normal Normal Turbidity < 20 Sodium 136 142 144 Potassium 3.4 L 4.3 3.9 Chloride 103 110 108 H Carbon Dioxide 22 24 25 Anion Gap 11 8 11 BUN 10.0 14.0 16.0 Creatinine 0.9 0.7 0.6 L GFR Calculation 67 90 107 BUN/Creatinine Ratio 11 20 27 H Glucose 144 133 98 Calculated Osmolality 264 276 278 Calcium 8.6 8.6 8.4 Phosphorus 1.9 L 5.4 H Icterus Index 2.3 < 2 Specimen Hemolysis < 15 02/26/18 04:15 WBC 7.9 RBC 4.38 Hgb 12.1 Hct 36.9 MCV 84.2 MCH 27.6 MCHC 32.8 RDW Std Deviation 41.4 Plt Count 83 L D MPV 13.6 H Immature Gran % (Auto) 0.4 Neut % (Auto) 38.2 Lymph % (Auto) 39.0 [place] % (Auto) 9.6 H Eos % (Auto) 12.5 H Baso % (Auto) 0.3 Neut # (Auto) 3.0 Lymph # (Auto) 3.1 [place] # (Auto) 0.8 Eos # (Auto) 1.0 H Baso # (Auto) 0.0 Abs Immat Gran (auto) 0.03 Neutrophils % (Manual) Band Neutrophils % Lymphocytes % (Manual) Reactive Lymphs % Monocytes % (Manual) Eosinophils % (Manual) Basophils % (Manual) Metamyelocytes % Neutrophils # (Manual) Band Neutrophils # Lymphocytes # (Manual) Abs React Lymphs (Man) Monocytes # (Manual) Eosinophils # (Manual) Basophils # (Manual) Metamyelocytes # RBC Morph Comment Turbidity Sodium Potassium Chloride Carbon Dioxide Anion Gap BUN Creatinine GFR Calculation BUN/Creatinine Ratio Glucose Calculated Osmolality Calcium Phosphorus Icterus Index Specimen Hemolysis - Microbiology Microbiology 02/22/18 12:57 Peripheral/Iv Start Blood Culture - Preliminary No Growth After 3 Days 02/22/18 12:57 Peripheral/Iv Start Blood Culture - Preliminary No Growth After 3 Days 02/23/18 04:09 Groin Gram Stain - Final - SENSITIVITIES PENDING at time of discharge Coag negative Staphylococcus Corynebacterium species - Pathology 02/24/18: Peripheral Smear - Marked thrombocytopenia. - Slight leukocytosis due to neutrophilia. - Lymphocytopenia. - Manual differential revealed: * 91% neutrophils and bands. * 2.5% lymphocytes. * 5.5% monocytes. * 1% eosinophils. * No circulating blasts or dysplastic cells. * Occasional neutrophils show toxic granulation and/or vacuolization. * No significant number of schistocytes seen. * No platelet clumps with platelet morphology unremarkable. * REactive, possibly infectious etiology is favored for the neutrophilia. History of Present Illness HPI: Beti Logan is a 47-year-old patient of Dr. Isiah Santos who [place] [facility] 02[place]22[place]18 for evaluation of a generalized, fine rash. She reported that she was seen in the ED on 02/21/18 and started on Bactrim DS for treatment of an abscess in her right groin. No I&D was performed at that time as the abscess was not ready to be drained. This morning she noticed a fine, itchy, generalized rash which prompted her return to the ED. She denied any other new concerns including no shortness of breath, facial or lip swelling, oral or genital lesions, chest pain, nausea or vomiting. No skin sloughing but was noted to have some pustules on the outside of her right pinky finger. She reported similar symptoms previously with amoxicillin. Labs revealed leukocytosis (WBC 12.4) with critical thrombocytopenia (Plt 23) as well as hypokalemia (K 3.4) and hyperglycemia (Glu 144). Due to her acute drug reaction , she was admitted to the hospitalist service. Objective Vital signs: Temperature 97.1 F 02/26/18 07:18 Pulse Rate 52 L 02/26/18 07:18 Respiratory Rate 16 02/26/18 07:18 Blood Pressure 129/69 02/26/18 07:18 Pulse Oximetry 98 02/26/18 07:18 Height/Weight/BMI: Weight 226 lb 6.636 oz Comments: Patient is resting in bed and reports that she is eager for discharge home. Pain well controlled. - Constitutional Present: no acute distress, well nourished, well developed, cooperative - Routine HEENT Exam Head: Present: normocephalic, atraumatic Eye: Present: PERRL. Absent: conjunctival icterus ENT: Present: mucous membranes moist, oropharynx clear - Routine Respiratory Exam Present: CTA bilaterally. Absent: respiratory distress, wheezes - Routine Cardiovascular Exam Present: RRR, S1, S2 - Routine Abdominal Exam Present: soft, normoactive bowel sounds, non distended. Absent: rebound, guarding - Routine Extremities Exam Present: no edema, full ROM, pulses intact - Routine Back/Spine/Pelvis Exam Back/Spine: Present: full ROM. Absent: vertebral tenderness - Routine Musculoskeletal Exam Musculoskeletal: Present: no clubbing or cyanosis, moving extremities well - Routine Skin Exam Present: intact, dry, warm Comments: Afebrile. Generalized rash improving. Abscess to right lower abdomen/groin currently with packing and no active bleeding or drainage noted. - Routine Neurological Exam Present: alert, oriented X3, moving all extremities, hearing grossly intact, normal speech - Routine Lymphatic Exam Lymphatic: Absent: lymphedema - Routine Psychiatric Exam Present: normal affect, cooperative Hospital Course This is a general summary of the patient's hospital course. For more details refer to the complete medical record. Hospital course: Patient was admitted on 02/22/18 to the hospitalist service for close evaluation and treatment of acute drug reaction with rash most likely from the Bactrim. The Bactrim was discontinued and Clindamycin was initiated for continued treatment of the groin abscess. Close skin and mucosal evaluation revealed no mucosal involvement or skin sloughing. Initial thrombocytopenia believed to be drug inducted immune thrombocytopenia most likely from the Bactrim and was monitored closely throughout her admission. Peripheral smear was obtained and was consistent with infectious process regarding the neutrophilia. Inguinal abscess was initially draining spontaneously and wound culture was obtained revealing coag negative staphylococcus and corynebacterium with sensitivities pending at time of discharge. Thrombocytopenia slowing improved without administration of steroids. Hypophosphatemia noted and corrected with supplementation. Leukocytosis resolved with initiation of clindamycin and blood cultures remained negative x [address] Sanches, surgery, was consulted and the patient underwent an I&D on 02/25/18 at which time her platelets had improved to 60,000. During the I&D, the wound was packed and will need to continued to be packed daily following discharge. Patient expressed interest in learning how to pack the wound herself and will undergo training prior to discharge by the surgical team. Plan to continue on Clindamycin until 03/03/18 for a total of 8 days of treatment. 1140 - Unfortunately, during the education and packing change, Beti had severe pain requiring IV pain medication. She does not feel that she will be able to manage packing the wound herself. Will hold off on discharge today with plan to discharge home tomorrow. Gonzalez with Dr. Sanches has suggested that the patient may be able to return to the infusion center for dressing changes daily. Will re-evaluate tomorrow and continue with care today. Time spent with patient: greater than 35 minutes Resuscitation Status: Full Code Discharge Plan - Discharge Disposition Discharge Date: 02/26/18 Disposition: Discharged Home, Self-Care *Condition: Improved Reason For Visit (Visit label in EMR): drug reaction - Discharge Medications Medication Comments: DRUG ALLERGY ---- SULFA -----DRUG ALLERGY Bactrim DS was discontinued on admission due to allergy including rash. Clindamycin 300mg 4x daily was initiated on 02/22/18 to be continued through 03/03 for treatment of abscess. Benadryl 25mg every 4 hours as needed for itching was provided. Pepcid 20mg twice a day as given to assist with itching and oral manifestations of the allergic reaction. [place] 5/325 every 6 hours was available as needed for pain control. Nicotine patch was provided and smoking cessation was discussed. K-Phos was given x 1 dose for phosphorus supplementation. *Discharge Medications: New Clindamycin [Cleocin] 300 mg PO QID #24 cap DiphenhydrAMINE [Benadryl] 25 - 50 mg PO Q4H PRN cap PRN Reason: Itching Famotidine [Pepcid] 20 mg PO BID tab Hydrocodone/APAP 5/325 [[place] 5/325] 1 tab PO Q5H PRN #15 tab PRN Reason: Pain Oxycodone/Apap 10/325 [Percocet 10/325] 1 tab PO DAILY #15 tab Continue Tramadol [Ultram] 50 mg PO Q6HR PRN PRN Reason: Pain Fluticasone Nasal [place] [Flonase] 2 spray EA NOSTRIL DAILY Albuterol HFA Inhaler [Ventolin Hfa 90 mcg/actuation] 2 puff ORAL INH Q4HR PRN PRN Reason: Shortness Of Air/Wheezing Cetirizine HCl [Zyrtec] 10 mg PO HS Acetaminophen [Acetaminophen Extra Strength] 1,000 mg PO Q6H PRN PRN Reason: Pain Ibuprofen 400 mg PO Q4H PRN PRN Reason: Pain - Discharge Packet/Instructions *Diet: Regular *Activity: as tolerated *Pain Management/Treatment: [place] 5/325 every 4-6 hours as needed for pain. Ibuprofen 400-600mg every 6-8 hours as needed for pain. Home Ultram as directed. *Wound Care: Pack right inguinal wound with 1/2 inch NuGauze (Ribbon gauze) twice a day. May shower just prior to packing changes, do NOT tub bath. Less packing will be needed every couple of days. *Expected Signs/Symptoms: gradual improvement with complete healing of abscess and resolution of pain. *Notify Physician if: fever >101, increased redness, increased swelling, abdominal pain, nausea, vomiting, difficulty urinating, diarrhea, additional questions or concerns. *During Business Hours Contact: Dr. Isiah Santos at [phone] Sanches at [phone]. *After Business Hours Contact: the on-call physician for Dr. Santos or Dr. Sanches or the nearest emergency department. *Pending Lab/Results: Will review at F/U Appt - Referrals/Follow Up *Referrals/Follow Up: Odin Sanches MD [Physician] - 03/10/18 10:00 am (in the [facility], 2nd floor, for follow up wound care.) Isiah Santos MD [Primary Care Provider] - 03/06/18 3:30 pm (Please call to schedule.) - Patient Handouts Patient Handouts: Abscess (GEN), Abscess Incision and Drainage (DC) - Dismissal Complete Discharge Instructions are:: Complete Physician Narrative - Narrative Attestation Narrative: Date: 02/26/18 Time: 913
[2018-02-26] MEDS: CLINDAMYCIN 300 MG CAPSULE PO SCH ×4 (09:46→20:11)
[2018-02-26] MEDS: SALINE FLUSH 10ml SYRINGE IVF PRN (09:55)
--- NOTE | 2018-02-26 10:35 | General Surgery Progress Note ---
Subjective Narrative: Her skin is still very sensitive, trying to do packing change today with IV morphine still was very painful. She cried out loudly at times, even with very slow gently removal of the packing. She started crying with touch to the thigh to slightly open up the wound. was ready to do the packing change, but patient displayed enough pain that he is not comfortable with changes at this time. - Vital Signs Last Vital Signs Temp 97.1 F 02/26/18 07:18 Pulse 52 L 02/26/18 07:18 Resp 16 02/26/18 07:18 BP 129/69 02/26/18 07:18 Pulse Ox 98 02/26/18 07:18 - Laboratory Result Diagrams: 02/26/18 04:15 02/25/18 04:00 - Abnormal Exam Skin: Wound looks clean at the base, beefy red. Sulfa rash is continuing to fade. wound depth about 1.5 cm, width 5 cm, 1 inch ribbon gauze packing in easily to depth. - Normal Exam General: awake, alert, oriented Respiratory: no labored breathing Abdominal: soft Psychiatric: other (anxiety regarding anticipated pain with packing) Assessment and Plan (1) Abscess of right groin Current Visit: Yes Status: Acute Plan: Given the display of pain with packing this 1st POD, will change pain med to Percocet 10 1 hour before change and try that this evening and again tomorrow morning. Arrangements for infusion team to do packing changes over the weekend. Rx for Percocet 10 written for her to take ONLY prior to packing changes. Hospital Course Summary Disclaimer: The visit summary below is not to be considered part of the above Progress Note. Hospital Course: Patient was admitted on 02/22/18 to the hospitalist service for close evaluation and treatment of acute drug reaction with rash most likely from the Bactrim. The Bactrim was discontinued and Clindamycin was initiated for continued treatment of the groin abscess. Close skin and mucosal evaluation revealed no mucosal involvement or skin sloughing. Initial thrombocytopenia believed to be drug inducted immune thrombocytopenia most likely from the Bactrim and was monitored closely throughout her admission. Peripheral smear was obtained and was consistent with infectious process regarding the neutrophilia. Inguinal abscess was initially draining spontaneously and wound culture was obtained revealing coag negative staphylococcus and corynebacterium with sensitivities pending at time of discharge. Thrombocytopenia slowing improved without administration of steroids. Hypophosphotemia noted and corrected with supplementation. Leukocytosis resolved with initiation of clindamycin and blood cultures remained negative x [address] Sanches, surgery, was consulted and the patient underwent an I&D on 02/25/18 at which time her platelets had improved to 60,000. During the I&D, the wound was packed and will need to continued to be packed daily following discharge. Patient expressed interest in learning how to pack the wound herself and will undergo training prior to discharge by the surgical team. Plan to continue on Clindamycin until 03/03/18 for a total of 8 days of treatment. 02/26 wound note: Given the display of pain with packing this 1st POD, will change pain med to Percocet 10 1 hour before change and try that this evening and again tomorrow morning. Arrangements for infusion team to do packing changes over the weekend. Rx for Percocet 10 written for her to take ONLY prior to packing changes.
[2018-02-26] MEDS: FAMOTIDINE 20 MG TABLET PO SCH ×2 (10:47→20:11)
[2018-02-26] MEDS: NICOTINE PATCH REMOVAL TD SCH (10:47)
[2018-02-26] MEDS: FLUTICASONE NASAL SPRAY 50mcg EA NOSTRIL SCH (10:47)
[2018-02-26] MEDS ORDERED: IBUPROFEN 600 MG TABLET PO PRN (10:49)
--- NOTE | 2018-02-26 11:13 | Progress Note ---
- Date 02/26/18 Subjective: F/U: myrna Bang is seen this morning while resting in bed. She reports that she is feeling better today. She underwent I&D to her right groin for an abscess on with Dr. Sanches. She remains afebrile and without new complaints. No chest pain, shortness of breath, abdominal pain, nausea, vomiting or dysuria. Appetite is stable, though she admits that she never really eats much, even at home. No bowel movement since admission though she is passing gas. Objective Vital signs: Temperature 97.1 F 02/26/18 07:18 Pulse Rate 52 L 02/26/18 07:18 Respiratory Rate 16 02/26/18 07:18 Blood Pressure 129/69 02/26/18 07:18 Pulse Oximetry 98 02/26/18 07:18 Height/Weight/BMI: Weight 226 lb 6.636 oz Comments: Resting in bed. - Constitutional Present: no acute distress, well nourished, well developed, obese, cooperative - Routine HEENT Exam Head: Present: normocephalic, atraumatic Eye: Present: PERRL. Absent: conjunctival icterus ENT: Present: mucous membranes moist, oropharynx clear - Routine Respiratory Exam Present: CTA bilaterally. Absent: respiratory distress, wheezes - Routine Cardiovascular Exam Present: RRR, S1, S2 - Routine Abdominal Exam Present: soft, normoactive bowel sounds, non distended. Absent: rebound, guarding - Routine Extremities Exam Present: no edema, full ROM, pulses intact - Routine Back/Spine/Pelvis Exam Back/Spine: Present: full ROM. Absent: vertebral tenderness - Routine Musculoskeletal Exam Musculoskeletal: Present: no clubbing or cyanosis, moving extremities well - Routine Skin Exam Present: dry, warm Comments: Afebrile. Generalized rash improving. Abscess to right lower abdomen/groin currently with packing and no active bleeding or drainage noted. 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 Sanches on 02/25/2018 Leukocytosis - POA (resolved) Asthma Tobacco addiction Hidradenitis suppurativa Hypophosphatemia-resolved 02/26 - POD #1 Patient underwent I&D with Dr. Sanches on 02/25/18. Pain fairly well controlled, though she did admit to severe pain with packing change last night. Continue current care with clindamycin (day #5). Plan to discharge home with clindamycin 300mg QID through 03/03/18. Initial plan was for patient to discharge home today following teachings on how to change her packing. Unfortunately, during her packing change, she had severe pain and did not feel that she would be able to complete the cares at home by herself. Discussed with Gonzalez with Dr. Sanches who recommended keeping her for another night due to her severe pain with plan to discharge tomorrow. Plan to decrease packing to once daily and need to ensure patient has all required materials over the holiday weekend. Anticipate patient returning to the infusion center over the weekend for assistance in repacking her wound. Patient to follow up with Dr. Sanches in clinic in [address] Santos in 1 week. Wound culture revealed coag negative staph, corynebacterium, anaerobic gram negative rods and other fredo with sensitivity pending. Platelets improving 23-->28-->41-->60-->83. Continue to recommend smoking cessation. Will recheck CBC in AM to continue to monitor blood counts, specifically platelets. 02/26/2018-1 PM-I examined the patient independently. I reviewed this chart, the patient history, and the [employer]'s/PA's documented findings as above. We discussed and formulated the assessment and plan as above with the additions below.-Dr. Ng Patient was seen in her room earlier this morning. She was feeling well. Rash is improving. There is no skin sloughing. She denies any oral lesions or genital lesions. Chest is clear to auscultation. Cardiovascular reveals a regular rate and rhythm. Abdomen is soft and nontender. Extremities are free of edema. Skin exam reveals rashes improving. There is no skin sloughing. Impression and plan Drug-induced rash is slowly improving. Regarding abscess in right groin, continue clindamycin. She had I&D yesterday. We did attempt to have her learned to pack the wound today, but the patient was having extreme pain. Plan is to keep the patient in the hospital overnight and attempt teaching her how to pack her wound tomorrow. If this is still too difficult, will likely arrange for outpatient wound treatment. Thrombocytopenia continues to improve. She has had no abnormal bleeding. Discussed with ARIANA Olson for Dr.Dr. Sanches DVT Prophylaxis: SCD's GI Prophylaxis: Pepcid Resuscitation Status: Full Code - Time spent with patient Time with patient PN: 35 minutes - Physician Narrative Narrative: Date: 02/26/18 Time: 1110 Hospital Course Summary Disclaimer: The visit summary below is not to be considered part of the above Progress Note. Hospital Course: Patient was admitted on 02/22/18 to the hospitalist service for close evaluation and treatment of acute drug reaction with rash most likely from the Bactrim. The Bactrim was discontinued and Clindamycin was initiated for continued treatment of the groin abscess. Close skin and mucosal evaluation revealed no mucosal involvement or skin sloughing. Initial thrombocytopenia believed to be drug inducted immune thrombocytopenia most likely from the Bactrim and was monitored closely throughout her admission. Peripheral smear was obtained and was consistent with infectious process regarding the neutrophilia. Inguinal abscess was initially draining spontaneously and wound culture was obtained revealing coag negative staphylococcus and corynebacterium with sensitivities pending at time of discharge. Thrombocytopenia slowing improved without administration of steroids. Hypophosphotemia noted and corrected with supplementation. Leukocytosis resolved with initiation of clindamycin and blood cultures remained negative x [address] Sanches, surgery, was consulted and the patient underwent an I&D on 02/25/18 at which time her platelets had improved to 60,000. During the I&D, the wound was packed and will need to continued to be packed daily following discharge. Patient expressed interest in learning how to pack the wound herself and will undergo training prior to discharge by the surgical team. Plan to continue on Clindamycin until 03/03/18 for a total of 8 days of treatment. 02/26 wound note: Given the display of pain with packing this 1st POD, will change pain med to Percocet 10 1 hour before change and try that this evening and again tomorrow morning. Arrangements for infusion team to do packing changes over the weekend. Rx for Percocet 10 written for her to take ONLY prior to packing changes. 02/26 - POD #1 Patient underwent I&D with Dr. Sanches on 02/25/18. Pain fairly well controlled, though she did admit to severe pain with packing change last night. Continue current care with clindamycin (day #5). Plan to discharge home with clindamycin 300mg QID through 03/03/18. Initial plan was for patient to discharge home today following teachings on how to change her packing. Unfortunately, during her packing change, she had severe pain and did not feel that she would be able to complete the cares at home by herself. Discussed with Gonzalez with Dr. Sanches who recommended keeping her for another night due to her severe pain with plan to discharge tomorrow. Plan to decrease packing to once daily and need to ensure patient has all required materials over the holiday weekend. Anticipate patient returning to the infusion center over the weekend for assistance in repacking her wound. Patient to follow up with Dr. Sanches in clinic in [address] Santos in 1 week. Wound culture revealed coag negative staph, corynebacterium, anaerobic gram negative rods and other fredo with sensitivity pending. Platelets improving 23-->28-->41-->60-->83. Continue to recommend smoking cessation. Will recheck CBC in AM to continue to monitor blood counts, specifically platelets.
--- NOTE | 2018-02-26 15:27 | Progress Note ---
DATE 02/26/2018 FINDINGS Ms. Logan was seen earlier this morning on rounds. She states that she did have a fair amount of pain during her dressing change. The patient states, however, overall she is feeling better. OBJECTIVE VITALS: Afebrile. Normotensive. Please refer to EMR. ABDOMEN: Attention was focused to the right inguinal region. Packing has been replaced earlier this morning and was not removed. Visualization however along the edge of her surgical incision reveals that the skin is less erythematous in nature. Packing is in place within the surgical incision site. Palpation around the edge of the incision site revealed decreasing induration. No purulent material was expressed upon palpation. ASSESSMENT 47-year-old female status post incision and drainage of right inguinal abscess. Patient with recent history for recent drug allergic reaction. Overall patient doing well. PLAN The patient apparently had required morphine earlier today for her dressing change. The plan is to keep the patient in until tomorrow. If patient does tolerate dressing change tomorrow, she will be discharged at that time. Please refer to discharge instructions put forth in the chart from a surgical standpoint. Overall I am pleased with the patient's progress at this time. LESLYD
[2018-02-26] MEDS: Oxycodone/Apap 10/325 1 TAB PO PRN (17:21)
[2018-02-26] MEDS: CETIRIZINE 10 MG TABLET PO SCH (20:11)
[2018-02-26 22:55] VITALS: RESP 16
[2018-02-27 07:25] VITALS: BP 130/72; PULSE 56; TEMP 96.5; O2SAT 95
[2018-02-27] MEDS: FAMOTIDINE 20 MG TABLET PO SCH (08:25)
[2018-02-27] MEDS: Oxycodone/Apap 10/325 1 TAB PO PRN (08:25)
[2018-02-27] MEDS: CLINDAMYCIN 300 MG CAPSULE PO SCH (08:25)
[2018-02-27] MEDS: FLUTICASONE NASAL SPRAY 50mcg EA NOSTRIL SCH ×2 (08:26→08:27)
[2018-02-27] MEDS: NICOTINE PATCH REMOVAL TD SCH (08:27)
--- NOTE | 2018-02-27 10:19 | General Surgery Progress Note ---
Subjective Patient reports: feels better, pain is less (able to do packing change today with minimal to barely moderate pain after Percocet 10, compared to severe pain yesterday with Morphine.), tolerating a regular diet Narrative: states the packing change by nursing last night after Percoet 10 was easier than in the morning with Morphine. - Vital Signs Last Vital Signs Temp 96.5 F L 02/27/18 07:24 Pulse 56 L 02/27/18 07:24 Resp 16 02/27/18 07:24 BP 130/72 02/27/18 07:24 Pulse Ox 95 02/27/18 07:24 - Laboratory Result Diagrams: 02/27/18 04:01 02/25/18 04:00 - Abnormal Exam Skin: Right inguinal crease wound healing in nicely, now about 1.25 cm deep, beefy red. Bactrim rash is almost gone, but skin surface still very sensitive to light touch or rubbing of the gauze across the skin. - Normal Exam General: awake, alert, oriented Respiratory: no labored breathing Psychiatric: normal affect (much less anxious than yesterday) Assessment and Plan (1) Abscess of right groin Current Visit: Yes Status: Acute Plan: Arrangements are made for Infusion center to do packing changes daily over the weekend, and into next week if needed. Lynne from infusion center was given the written order. Beti will take a Percocet 10 once a day before packing changes. Beti states she has a friend that might be able to do packing changes once the pain has subsided a little more. feels he is not able to do the packing change. Appointment in my office for FridayMarch 10. Hospital Course Summary Disclaimer: The visit summary below is not to be considered part of the above Progress Note. Hospital Course: Patient was admitted on 02/22/18 to the hospitalist service for close evaluation and treatment of acute drug reaction with rash most likely from the Bactrim. The Bactrim was discontinued and Clindamycin was initiated for continued treatment of the groin abscess. Close skin and mucosal evaluation revealed no mucosal involvement or skin sloughing. Initial thrombocytopenia believed to be drug inducted immune thrombocytopenia most likely from the Bactrim and was monitored closely throughout her admission. Peripheral smear was obtained and was consistent with infectious process regarding the neutrophilia. Inguinal abscess was initially draining spontaneously and wound culture was obtained revealing coag negative staphylococcus and corynebacterium with sensitivities pending at time of discharge. Thrombocytopenia slowing improved without administration of steroids. Hypophosphotemia noted and corrected with supplementation. Leukocytosis resolved with initiation of clindamycin and blood cultures remained negative x [address] Sanches, surgery, was consulted and the patient underwent an I&D on 02/25/18 at which time her platelets had improved to 60,000. During the I&D, the wound was packed and will need to continued to be packed daily following discharge. Patient expressed interest in learning how to pack the wound herself and will undergo training prior to discharge by the surgical team. Plan to continue on Clindamycin until 03/03/18 for a total of 8 days of treatment. 02/26 wound note: Given the display of pain with packing this 1st POD, will change pain med to Percocet 10 1 hour before change and try that this evening and again tomorrow morning. Arrangements for infusion team to do packing changes over the weekend. Rx for Percocet 10 written for her to take ONLY prior to packing changes. 02/26 - POD #1 Patient underwent I&D with Dr. Sanches on 02/25/18. Pain fairly well controlled, though she did admit to severe pain with packing change last night. Continue current care with clindamycin (day #5). Plan to discharge home with clindamycin 300mg QID through 03/03/18. Initial plan was for patient to discharge home today following teachings on how to change her packing. Unfortunately, during her packing change, she had severe pain and did not feel that she would be able to complete the cares at home by herself. Discussed with Gonzalez with Dr. Sanches who recommended keeping her for another night due to her severe pain with plan to discharge tomorrow. Plan to decrease packing to once daily and need to ensure patient has all required materials over the holiday weekend. Anticipate patient returning to the infusion center over the weekend for assistance in repacking her wound. Patient to follow up with Dr. Sanches in clinic in [address] Santos in 1 week. Wound culture revealed coag negative staph, corynebacterium, anaerobic gram negative rods and other fredo with sensitivity pending. Platelets improving 23-->28-->41-->60-->83. Continue to recommend smoking cessation. Will recheck CBC in AM to continue to monitor blood counts, specifically platelets. 02/27 wound note: Arrangements are made for Infusion center to do packing changes daily over the weekend, and into next week if needed. Lynne from infusion center was given the written order. Beti will take a Percocet 10 once a day before packing changes. Beti states she has a friend that might be able to do packing changes once the pain has subsided a little more. feels he is not able to do the packing change. Appointment in my office for FridayMarch 10.
--- NOTE | 2018-02-27 13:51 | Discharge Summary ---
Discharge Information Date of admission: 02/23/18 14:12 Anticipated date of discharge: 02/27/18 Attending Physician: Barbara Ng MD Primary care physician: Isiah Santos MD Consults: Dr. 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 Sanches on 02/25/2018 Leukocytosis - POA (resolved) Asthma Tobacco addiction Hidradenitis suppurativa Hypophosphatemia-resolved - Procedures Procedures: 02/25/18-PROCEDURE - Incision and drainage of deep right inguinal abscess with excisional surgical debridement of necrotic subcutaneous tissues. Dr. Sanches - Laboratory Labs: 02/27/18 04:01 02/25/18 04:00 - Microbiology Microbiology 02/22/18 12:57 Peripheral/Iv Start Blood Culture - Final No Growth After 5 Days 02/22/18 12:57 Peripheral/Iv Start Blood Culture - Final No Growth After 5 Days 02/23/18 04:09 Groin Gram Stain - Final 02/23/18 04:09 Groin Abscess Culture - Final Coag negative Staphylococcus Corynebacterium species Anaerobic Gram-Negative John Other Fredo Observed - Radiology Radiology: None - Pathology 02/24/18: Peripheral Smear - Marked thrombocytopenia. - Slight leukocytosis due to neutrophilia. - Lymphocytopenia. - Manual differential revealed: * 91% neutrophils and bands. * 2.5% lymphocytes. * 5.5% monocytes. * 1% eosinophils. * No circulating blasts or dysplastic cells. * Occasional neutrophils show toxic granulation and/or vacuolization. * No significant number of schistocytes seen. * No platelet clumps with platelet morphology unremarkable. * REactive, possibly infectious etiology is favored for the neutrophilia. History of Present Illness HPI: Beti Logan is a 47-year-old patient of Dr. Isiah Santos who [place] [facility] [place] 02/22/18 for evaluation of a generalized, fine rash. She reported that she was seen in the ED on 02/21/18 and started on Bactrim DS for treatment of an abscess in her right groin. No I&D was performed at that time as the abscess was not ready to be drained. This morning she noticed a fine, itchy, generalized rash which prompted her return to the ED. She denied any other new concerns including no shortness of breath, facial or lip swelling, oral or genital lesions, chest pain, nausea or vomiting. No skin sloughing but was noted to have some pustules on the outside of her right pinky finger. She reported similar symptoms previously with amoxicillin. Labs revealed leukocytosis (WBC 12.4) with critical thrombocytopenia (Plt 23) as well as hypokalemia (K 3.4) and hyperglycemia (Glu 144). Due to her acute drug reaction , she was admitted to the hospitalist service. Objective Vital signs: Temperature 96.5 F L 02/27/18 07:24 Pulse Rate 56 L 02/27/18 07:24 Respiratory Rate 16 02/27/18 07:24 Blood Pressure 130/72 02/27/18 07:24 Pulse Oximetry 95 02/27/18 07:24 Height/Weight/BMI: Weight 99 kg - Constitutional Present: no acute distress, well nourished, well developed - Routine HEENT Exam Eye: Present: EOMI ENT: Present: mucous membranes moist, dentition normal - Routine Respiratory Exam Present: CTA bilaterally. Absent: wheezes - Routine Cardiovascular Exam Present: RRR, S1, S2. Absent: murmur - Routine Abdominal Exam Present: soft, normoactive bowel sounds, non distended. Absent: tenderness - Routine Extremities Exam Present: full ROM, pulses intact - Routine Back/Spine/Pelvis Exam Back/Spine: Present: full ROM - Routine Skin Exam Present: intact, dry, warm, rash (right hand) - Routine Neurological Exam Present: alert, oriented X3, CN II-XII intact - Routine Lymphatic Exam Lymphatic: Absent: adenopathy - Routine Psychiatric Exam Present: normal affect Hospital Course This is a general summary of the patient's hospital course. For more details refer to the complete medical record. Hospital course: 02/22/18- Admission Drug Rash -Likely from Bactrim, will d/c -No mucosal involvement currently -Supportive tx Thrombocytopenia -Likely DITP 2/2 Bactrim (drug induced immune thrombocytopenia) -Will order peripheral smear, d/c Bactrim -If DITP than should recover within days to 1 week -For now will monitor but options for tx if gets worse would be IVIG/steroids Inguinal abscess -Small abscess, draining spontaneously, will send for cx -Will do clindamycin, pt reports she has likely had that before without issues Asthma -Cont. home inhaler 02/23/18 Drug Rash -Likely from Bactrim, d/c'd 02/22 -No mucosal involvement currently -Continue supportive tx -Switch IV pepcid to p.o. and add Benadryl prn itch for histamine response. Thrombocytopenia -Likely DITP 2/2 Bactrim (drug induced immune thrombocytopenia) -Will order peripheral smear, d/c Bactrim -If DITP than should recover within days to 1 week -For now will monitor but options for tx if gets worse would be IVIG/steroids -One prophylactic dose Lovenox given, will hold d/t thrombocytopenia Inguinal abscess -Small abscess, draining spontaneously, wound culture pending -Day#2 of clindamycin 02/24/18-Plan Phosphorus low - supplementation initiated. Platelets improving 23-->28-->41. Leukocytosis resolved. Continues on clindamycin (Day#3) for inguinal abscess. Abscess continues to drain spontaneously. Consult Dr. Sanches for determination of whether abscess needs further I&D. Peripheral smear is consistent with reactive/infectious etiology. Case discussed with Dr. Ng and Dr Sanches. 02/24/2018-6:55 PM-I examined the patient independently. I reviewed this chart, the patient history, and the CAPTAIN WAITER's/PA's documented findings as above. We discussed and formulated the assessment and plan as above with the additions below.-Dr. Ng The patient was seen this morning in her room. She does have a firm area in the right groin concerning for an abscess. Her rash is slowly improving. She has no sloughing of her skin. No sores in her mouth or genital area. She is feeling well otherwise. On exam she is alert and in no acute distress. HEENT-examination of the mouth reveals no oral lesions. Chest clear to auscultation. Cardiovascular reveals a regular rate and rhythm. Abdomen is soft and nontender. Extremities are free of edema. Examination of the right groin reveals a firm area approximately 3-4 inches in greatest length with tenderness. She states there has been some discharge. Skin is warm and dry. She does have a rash over most of her body. It appears to spare the palms of her hands and soles for feet. There is no sloughing of her skin. Impression and plan Drug rash likely from Bactrim. Bactrim was discontinued. Possible abscess right groin, continue clindamycin. Consult Dr. Sanches for possible I&D Thrombocytopenia-possible drug-induced immune thrombocytopenia-this is improving. Recheck lab tomorrow. 02/25/18 Patient was admitted on 02/22/18 to the hospitalist service for close evaluation and treatment of acute drug reaction with rash most likely from the Bactrim. The Bactrim was discontinued and Clindamycin was initiated for continued treatment of the groin abscess. Close skin and mucosal evaluation revealed no mucosal involvement or skin sloughing. Initial thrombocytopenia believed to be drug inducted immune thrombocytopenia most likely from the Bactrim and was monitored closely throughout her admission. Peripheral smear was obtained and was consistent with infectious process regarding the neutrophilia. Inguinal abscess was initially draining spontaneously and wound culture was obtained revealing coag negative staphylococcus and corynebacterium with sensitivities pending at time of discharge. Thrombocytopenia slowing improved without administration of steroids. Hypophosphotemia noted and corrected with supplementation. Leukocytosis resolved with initiation of clindamycin and blood cultures remained negative x [address] Sanches, surgery, was consulted and the patient underwent an I&D on 02/25/18 at which time her platelets had improved to 60,000. During the I&D, the wound was packed and will need to continued to be packed daily following discharge. Patient expressed interest in learning how to pack the wound herself and will undergo training prior to discharge by the surgical team. Plan to continue on Clindamycin until 03/03/18 for a total of 8 days of treatment. 02/26 wound note: Given the display of pain with packing this 1st POD, will change pain med to Percocet 10 1 hour before change and try that this evening and again tomorrow morning. Arrangements for infusion team to do packing changes over the weekend. Rx for Percocet 10 written for her to take ONLY prior to packing changes. 02/26 - POD #1 Patient underwent I&D with Dr. Sanches on 02/25/18. Pain fairly well controlled, though she did admit to severe pain with packing change last night. Continue current care with clindamycin (day #5). Plan to discharge home with clindamycin 300mg QID through 03/03/18. Initial plan was for patient to discharge home today following teachings on how to change her packing. Unfortunately, during her packing change, she had severe pain and did not feel that she would be able to complete the cares at home by herself. Discussed with Gonzalez with Dr. Sanches who recommended keeping her for another night due to her severe pain with plan to discharge tomorrow. Plan to decrease packing to once daily and need to ensure patient has all required materials over the holiday weekend. Anticipate patient returning to the infusion center over the weekend for assistance in repacking her wound. Patient to follow up with Dr. Sanches in clinic in [address] Santos in 1 week. Wound culture revealed coag negative staph, corynebacterium, anaerobic gram negative rods and other fredo with sensitivity pending. Platelets improving 23-->28-->41-->60-->83. Continue to recommend smoking cessation. Will recheck CBC in AM to continue to monitor blood counts, specifically platelets. 02/27 wound note: Arrangements are made for Infusion center to do packing changes daily over the weekend, and into next week if needed. Lynne from infusion center was given the written order. Beti will take a Percocet 10 once a day before packing changes. Beti states she has a friend that might be able to do packing changes once the pain has subsided a little more. feels he is not able to do the packing change. Appointment in my office for FridayMarch 10. 02/27/18- Discharge Patient is seen and examined multiple times prior to discharge. Platelet count continues to improve and is 114 today. Overall, she states that she is feeling much better. Her rash and lesions is nearly subsided. She does have small lesions on the right lateral hand. Minimal itching or pain. She did undergo a dressing change this morning by Gonzalez Wyatt with Dr. Sanches. Ported that wound and healing appears to be improving. She is eager to be discharged home. Plan is that she will continue on clindamycin through 03/03/18. Outpatient infusion orders were given for dressing change and wound care packing over the holiday weekend. She scheduled to follow-up with her primary care provider next week as well as with Gonzalez on March 10. She is also given Percocet to take 1 hour prior to dressing changes for better pain control. She is going to continue utilizing [id number] Pepcid for her GERD and acid reflex. Patient is discharged in stable condition with . 02/27/2018-2:45 PM . I examined the patient independently. I reviewed this chart , the patient history, and the CAPTAIN WAITER's/PA's documented findings as above. We discussed and formulated the assessment and plan as above with the additions below.-Dr. Ng I did see and examine the patient earlier today prior to discharge. She was feeling quite well. Her wound had already been evaluated by Dr. Sanches's PROGRAM SUPPORT SPECIALIST and wound was looking better. Patient is anxious to go home. On exam she is alert and in no acute distress. Chest is clear to auscultation. Cardiac vascular reveals a regular rate and rhythm. Abdomen is soft and nontender. Skin exam reveals her rash to be markedly improved. Impression and plan She will discharge to home on clindamycin regarding her abscess. She will come in daily to have her wound packed and dressed. She was given a prescription for pain medication to take prior to her wound packing. The patient was notified that if her rash should worsen or if she is develops oral lesions or genital lesions she is to seek medical attention quickly. She will also call if she has difficulties with diarrhea, fevers or drainage from her wound. Time spent with patient: discharge greater than 30 minutes Resuscitation Status: Full Code Discharge Plan - Discharge Disposition Discharge Date: 02/26/18 Disposition: 01 Discharged Home, Self-Care *Condition: Improved Reason For Visit (Visit label in EMR): drug reaction - Discharge Medications *Discharge Medications: New Clindamycin [Cleocin] 300 mg PO QID #24 cap DiphenhydrAMINE [Benadryl] 25 - 50 mg PO Q4H PRN cap PRN Reason: Itching Famotidine [Pepcid] 20 mg PO BID tab Hydrocodone/APAP 5/325 [Melba 5/325] 1 tab PO Q5H PRN #15 tab PRN Reason: Pain Oxycodone/Apap 10/325 [Percocet 10/325] 1 tab PO DAILY #15 tab Continue Tramadol [Ultram] 50 mg PO Q6HR PRN PRN Reason: Pain Fluticasone Nasal [place] [Flonase] 2 spray EA NOSTRIL DAILY Albuterol HFA Inhaler [Ventolin Hfa 90 mcg/actuation] 2 puff ORAL INH Q4HR PRN PRN Reason: Shortness Of Air/Wheezing Cetirizine HCl [Zyrtec] 10 mg PO HS Acetaminophen [Acetaminophen Extra Strength] 1,000 mg PO Q6H PRN PRN Reason: Pain Ibuprofen 400 mg PO Q4H PRN PRN Reason: Pain - Discharge Packet/Instructions *Diet: Regular *Activity: as tolerated *Pain Management/Treatment: Melba 5/325 every 4-6 hours as needed for pain. Ibuprofen 400-600mg every 6-8 hours as needed for pain. Home Ultram as directed. *Wound Care: Pack right inguinal wound with 1/2 inch NuGauze (Ribbon gauzedaily daily. May shower just prior to packing changes, do NOT tub bath. Less packing will be needed every couple of days. She will go to infusion [place] over the weekend and kristofer have a neighbor learn to do this by next weeekWillis Alexandra in infusion center has the written order for packing changes. Additional Instructions: do not take tylenol/acetaminophen with norco or percocet. If your pain is improving, stop the norco and percocet and you can take tylenol and/or ultram for pain *Expected Signs/Symptoms: gradual improvement with complete healing of abscess and resolution of pain. *Notify Physician if: fever >101, increased redness, increased swelling, abdominal pain, nausea, vomiting, difficulty urinating, diarrhea, additional questions or concerns. *During Business Hours Contact: Dr. Isiah Santos at [phone] Sanches at [phone]. *After Business Hours Contact: the on-call physician for Dr. Santos or Dr. Sanches or the nearest emergency department. *Pending Lab/Results: Will review at F/U Appt - Referrals/Follow Up *Referrals/Follow Up: Odin Sanches MD [Physician] - 03/10/18 10:00 am (in the [facility], 2nd floor, for follow up wound care.) Isiah Santos MD [Primary Care Provider] - 03/06/18 3:30 pm (Please call to schedule.) - Patient Handouts Patient Handouts: Abscess (GEN), Abscess Incision and Drainage (DC) - Dismissal Complete Discharge Instructions are:: Complete Physician Narrative - Narrative Attestation Narrative: Date: 02/27/18 Time: 5999
== END 2018-02-27 11:10 | disposition home or self-care (01) | DRG 571 ==
LOC: EDHOLD 09:23 → ED 09:23 → MED 13:16 → SUATTDRO 02-23 14:12
PROVIDERS: ADMIT Internal Medicine; ATTEND Internal Medicine